=== PATIENT | male | born 1990 | race Caucasian/White ===

== ENCOUNTER 2023-04-26 11:38 | Emergency (ER) | payer MEDICAID ==
[~2023-04-26] VITALS: Ht 177.8 cm; Wt 81.6 kg
[2023-04-26 11:49] VITALS: BP 118/74; PULSE 116; RESP 18; TEMP 97.8; O2SAT 98
[2023-04-26] MEDS ORDERED: BACITRACIN OINT 500 UNITS/GM PKT TP ONE (12:30)
[2023-04-26] MEDS ORDERED: SALI1ADH TP (12:32)
[2023-04-26 13:47] VITALS: BP 115/72; PULSE 110; RESP 19; TEMP 98.1; O2SAT 98
== END 2023-04-26 13:47 | disposition home or self-care (01) ==
LOC: MED 11:38
DX: M25.775 Osteophyte, left foot (principal); M25.774 Osteophyte, right foot; Z79.899 Other long term (current) drug therapy
CPT/HCPCS: 99283